=== PATIENT | male | born 1990 | race Caucasian/White ===

== ENCOUNTER → 2016-11-30 | Outpatient (CLI) | payer OTHER ==
--- NOTE | 2016-11-30 14:52 | US ---
EXAMINATION TYPE: US abdomen comp/pelvis limited DATE OF EXAM: 11/30/2016 2:45 PM COMPARISON: NONE CLINICAL HISTORY: Abd Pain R10.9. Right Flank Pain, GERD, epigastric pain x 5 days; mild pain with u rination; URI per patient; Order states attention to bladder and prostate EXAM MEASUREMENTS: Liver length: 15.2cm Gallbladder wall: 0.2cm CBD: 0.2cm Spleen: 15.2 x 14.2 x 6.3cm Right Kidney: 12.4 x 6.2 x 5.0cm Left Kidney: 12.7 x 6.6 x 6.9cm Post Void Bladder Volume: 4.0ml TECHNOLOGIST IMPRESSION: Pancreas: head seen; remainder obscured by bowel gas Liver: wnl Gallbladder: wnl CBD: wnl Spleen: enlarged Right Kidney: No hydronephrosis or masses seen Left Kidney: No hydronephrosis or masses seen Upper IVC: wnl Abd Aorta: wnl as visualized as portions are gassed out Bladder: wnl; not fully distended due to NPO status Bilateral Jets Seen only left jet was seen after 3 minute observation Normal Post Void Residual (normal less than 50ml) Yes Prostate was noted inferior and posterior to bladder but size appears within normal limits. Urinary bladder is not greatly distended midline of pelvis. There is no intraluminal mass or wall thi ckening seen. After voiding minimal residual urine is present. Majority pancreas is obscured by overl cha bowel gas. Spleen measures up to 15.8 cm on long axis without suspicious focal intrasplenic mass . IMPRESSION: Spleen is enlarged and may warrant further clinical workup otherwise no significant findi ng is seen to account for patient's symptoms.
== END | disposition home or self-care (01) ==
LOC: RADUSWWP 13:43
PROVIDERS: ATTEND Family Medicine
DX: R16.1 Splenomegaly, not elsewhere classified (principal); R10.9 Unspecified abdominal pain
CPT/HCPCS: 76700; 76857

== ENCOUNTER 2016-12-01 05:46 | Emergency (ER) | payer OTHER ==
[2016-12-01 06:01] VITALS: RESP 18; TEMP 97.6
--- NOTE | 2016-12-01 08:27 | ED ---
General Adult HPI - General Chief complaint: Abdominal Pain Stated complaint: Flank Pain/Possible Kidney stone/Febrile Time Seen by Provider: 12/01/16 07:13 Source: patient, RN notes reviewed, old records reviewed Mode of arrival: ambulatory Limitations: no limitations - History of Present Illness Initial comments: This is a 26-year-old male here with nonspecific abdominal pain nonspecific back pain runny nose cough and congestion and generally not feeling well. Patient is been evaluated as an outpatient basis for his pain with both lab work and ultrasound, patient is also unemployed belly pain but he states he Severs from reflux and thinks is just worse reflux, patient denies fever no nausea vomiting or diarrhea. Patient states he woke today with cough congestion runny nose and symptoms progressing worse upper respiratory. No shortness of breath or chest pain. No cough. No known sick contacts or travel history. Patient is taking pain control currently for his pain in his back and muscles - Related Data Home Medications Medication Instructions Recorded Confirmed HYDROcodone/APAP 5-325MG [[place] 1 tab PO Q8H PRN 12/01/16 12/01/16 5-325] Ibuprofen [Motrin] 200 - 400 mg PO Q6HR PRN 12/01/16 12/01/16 Previous Rx's Medication Instructions Recorded Azithromycin [Zithromax] 0 mg PO DIRECTED #6 tab 12/01/16 Famotidine [Pepcid] 20 mg PO BID #60 tablet 12/01/16 Sucralfate [Carafate] 1 gm PO BID #60 tablet 12/01/16 Allergies Allergy/AdvReac Type Severity Reaction Status Date / Time cephalexin monohydrate Allergy Rash/Hives Verified 12/01/16 08:34 [From [employer]] Review of Systems ROS Statement: Those systems with pertinent positive or pertinent negative responses have been documented in the HPI. ROS Other: All systems not noted in ROS Statement are negative. Past Medical History Past Medical History: No Reported History History of Any Multi-Drug Resistant Organisms: None Reported Past Surgical History: Orthopedic Surgery Additional Past Surgical History / Comment(s): LEG SURG Past Psychological History: No Psychological Hx Reported Smoking Status: Never smoker Past Alcohol Use History: Occasional Past Drug Use History: None Reported General Exam Limitations: no limitations General appearance: alert, in no apparent distress Head exam: Present: atraumatic, normocephalic, normal inspection Eye exam: Present: normal appearance, PERRL, EOMI. Absent: scleral icterus, conjunctival injection, periorbital swelling ENT exam: Present: normal exam, mucous membranes moist Neck exam: Present: normal inspection. Absent: tenderness, meningismus, lymphadenopathy Respiratory exam: Present: normal lung sounds bilaterally. Absent: respiratory distress, wheezes, rales, rhonchi, stridor Cardiovascular Exam: Present: regular rate, normal rhythm, normal heart sounds. Absent: systolic murmur, diastolic murmur, rubs, gallop, clicks GI/Abdominal exam: Present: soft, normal bowel sounds. Absent: distended, tenderness, guarding, rebound, rigid Extremities exam: Present: normal inspection, full ROM, normal capillary refill. Absent: tenderness, pedal edema, joint swelling, calf tenderness Back exam: Present: normal inspection Neurological exam: Present: alert, oriented X3, CN II-XII intact Psychiatric exam: Present: normal affect, normal mood Skin exam: Present: warm, dry, intact, normal color. Absent: rash Course Vital Signs 12/01/16 12/01/16 05:57 08:41 Temperature 97.6 F 97.6 F Pulse Rate 79 82 Respiratory 18 18 Rate Blood Pressure 121/86 132/62 O2 Sat by Pulse 98 100 Oximetry - Reevaluation(s) Reevaluation #1: 12/01/16 09:02 Patient's medical records are achieved from Dr. Abraham's office including ultrasound of abdomen which showed no specific abnormalities, physical and lab work with urine which was negative as well. Reevaluation #2: 12/01/16 09:02 Patient denying any complaints, states he took medication prior to arrival at did help with his symptoms. These is concerned about this upper respiratory infection. This time. Medical Decision Making - Medical Decision Making 26 year with documented infection as well as chronic gastritis versus possible ulcer and generalized abdominal back pain. Patient has had lab work outpatient testing which is been negative to this point. In no acute distress patient states he feels comfortable resting well will prescribe antibiotic for upper respiratory infection patient complains discharged home Disposition Clinical Impression: Gastritis, URI (upper respiratory infection) Disposition: HOME SELF-CARE Condition: Good Instructions: Gastritis (ED), Upper Respiratory Infection (ED) Prescriptions: Azithromycin [Zithromax] 0 mg PO DIRECTED #6 tab Famotidine [Pepcid] 20 mg PO BID #60 tablet Sucralfate [Carafate] 1 gm PO BID #60 tablet Referrals: Jennifer King MD [Primary Care Provider] - 1-2 days Ananda Beard MD [STAFF PHYSICIAN] - 1-2 days
[2016-12-01 08:42] VITALS: BP 132/62; PULSE 82
== END 2016-12-01 08:42 | disposition home or self-care (01) ==
LOC: EC 05:46
DX: K29.70 Gastritis, unspecified, without bleeding (principal); J06.9 Acute upper respiratory infection, unspecified; K21.9 Gastro-esophageal reflux disease without esophagitis; M54.9 Dorsalgia, unspecified; Z88.1 Allergy status to other antibiotic agents; Z79.899 Other long term (current) drug therapy
CPT/HCPCS: 99283

== ENCOUNTER 2018-02-04 17:16 | Emergency (ER) | payer OTHER ==
[2018-02-04 17:27] VITALS: TEMP 98
[2018-02-04 18:00] VITALS: BP 133/65; PULSE 73; RESP 16
--- NOTE | 2018-02-04 18:25 | ED ---
SOB HPI - General Chief Complaint: Shortness of Breath Stated Complaint: ALISHA Time Seen by Provider: 02/04/18 17:38 Source: patient Mode of arrival: ambulatory Limitations: no limitations - History of Present Illness Initial Comments: This patient is 27-year-old man presenting with a little under 24 hours of symptoms that he is describing as feeling like his heart is skipping a beat and then when it does that feeling like he needs to catch his breath. The patient does relate that he was recently changed from a controlled release formulation of his ADHD medication to twice a day medication, and that also yesterday he did drink Jagermeister and Red Bull, before the onset of the symptoms. Patient relates that things have continued intermittently today, and he did also drink a little bit of Red Bull, today as well. Patient denies oral chest pain, he has not had any anginal type symptoms, including no diaphoresis, nausea or vomiting, light headedness or syncope. He has not had any chest pain. Onset/Timin -: days(s) Consistency: intermittent Improves With: nothing Worsens With: nothing Associated Symptoms: palpitations Treatments Prior to Arrival: none - Related Data Home Medications Medication Instructions Recorded Confirmed Dextroamphetamine/Amphetamine 20 mg PO BID 02/04/18 02/04/18 [Adderall] Ranitidine HCl [Zantac] 75 mg PO DAILY 02/04/18 02/04/18 Allergies Allergy/AdvReac Type Severity Reaction Status Date / Time cephalexin monohydrate Allergy Rash/Hives Verified 02/04/18 17:27 [From [employer]] Review of Systems ROS Statement: Those systems with pertinent positive or pertinent negative responses have been documented in the HPI. ROS Other: All systems not noted in ROS Statement are negative. Constitutional: Denies: fever, chills, weakness Eyes: Denies: vision change Respiratory: Denies: cough, dyspnea Cardiovascular: Reports: as per HPI, palpitations. Denies: chest pain, dyspnea on exertion, orthopnea, syncope Gastrointestinal: Denies: abdominal pain, nausea, vomiting Musculoskeletal: Denies: back pain Neurological: Denies: headache, weakness Past Medical History Past Medical History: No Reported History History of Any Multi-Drug Resistant Organisms: None Reported Past Surgical History: Orthopedic Surgery Additional Past Surgical History / Comment(s): LEG SURG Past Psychological History: ADD/ADHD Smoking Status: Current every day smoker Past Alcohol Use History: Occasional Past Drug Use History: None Reported General Exam Limitations: no limitations General appearance: alert, in no apparent distress Head exam: Present: atraumatic, normocephalic Eye exam: Present: normal appearance. Absent: scleral icterus, conjunctival injection ENT exam: Present: normal oropharynx Respiratory exam: Present: normal lung sounds bilaterally. Absent: respiratory distress, wheezes, rales, rhonchi, stridor Cardiovascular Exam: Present: regular rate, normal rhythm, normal heart sounds. Absent: systolic murmur, diastolic murmur, rubs, gallop GI/Abdominal exam: Present: soft. Absent: distended, tenderness, guarding, rebound, mass Extremities exam: Present: normal inspection, normal capillary refill. Absent: pedal edema, calf tenderness Back exam: Present: normal inspection. Absent: CVA tenderness (R), CVA tenderness (L) Neurological exam: Present: alert Skin exam: Present: warm, dry, intact, normal color. Absent: rash Course Vital Signs 02/04/18 02/04/18 17:25 17:59 Temperature 98.0 F Pulse Rate 86 73 Respiratory 18 16 Rate Blood Pressure 128/70 133/65 O2 Sat by Pulse 100 99 Oximetry Medical Decision Making - Medical Decision Making Patient is 27-year-old man presenting with some palpitations and transient dyspnea. This does appear to be related to recent medication change and also possibly due to the use of energy drink/caffeine. We discussed appropriate further care and follow-up as well as return parameters. - EKG Data -: EKG Interpreted by Me EKG shows normal: sinus rhythm (With sinus arrhythmia), axis (Normal), intervals (Normal), QRS complexes (Normal), ST-T waves (Normal) Rate: normal Interpretation: normal EKG Disposition Clinical Impression: Palpitations Disposition: HOME SELF-CARE Condition: Good Instructions: Palpitations (ED) Is patient prescribed a controlled substance at d/c from ED?: No Referrals: Jennifer King MD [Primary Care Provider] - 1-2 days
== END 2018-02-04 18:42 | disposition home or self-care (01) ==
LOC: EC 17:16
DX: R00.2 Palpitations (principal); F90.9 Attention-deficit hyperactivity disorder, unspecified type; F17.200 Nicotine dependence, unspecified, uncomplicated; Z79.899 Other long term (current) drug therapy; Z88.1 Allergy status to other antibiotic agents
CPT/HCPCS: 93005; 99284

== ENCOUNTER → 2019-11-15 | Outpatient (CLI) | payer BC ==
--- NOTE | 2019-11-17 19:42 | MR ---
EXAMINATION TYPE: MR shoulder RT wo con DATE OF EXAM: 11/15/2019 COMPARISON: None HISTORY: Rt shoulder pain x 6 mos, no trauma TECHNIQUE: Multiplanar, multisequence imaging of the right shoulder is performed without contrast. FINDINGS: Rotator Cuff: Intact, some increased signal within the rotator cuff tendon may be indicative of tendi nosis Acromioclavicular Joint: Small amount of T2 intense signal at the acromioclavicular joint of question able clinical significance, there is some hypertrophic change with mild mass effect on the musculoten dinous junction of supraspinatus. Slightly downturned distal acromion. Glenohumeral Joint: Intact Labrum: The labrum appears grossly intact given limitation of non-arthrogram study. Biceps Tendon: The long head of biceps is in normal location within bicipital groove. Bone marrow signal: No focal abnormal marrow signal is appreciated. Other: Minimal fluid present in the subacromial subdeltoid bursa. IMPRESSION: Correlate for impingement, mild tendinosis as described..
== END | disposition home or self-care (01) ==
LOC: RADMRIMAIN 18:59
PROVIDERS: ATTEND Orthopaedic Surgery
DX: M25.511 Pain in right shoulder (principal)

== ENCOUNTER → 2019-11-30 | Outpatient (CLI) | payer BC ==
[2019-11-30 12:10] LABS: Basophils % (A) 1 %; Eosinophils # (A) 0.2 k/uL (0-0.7); Eosinophils % (A) 3 %; HCT 42.7 % (39.0-53.0); HGB 14.2 gm/dL (13.0-17.5); Lymphocytes # (A) 1.8 k/uL (1.0-4.8); Lymphocytes % (A) 30 %; MCH 29.2 pg (25.0-35.0); MCHC 33.2 g/dL (31.0-37.0); MCV 87.8 fL (80.0-100.0); Mean Platelet Volume 7.9; Monocytes # (A) 0.4 k/uL (0-1.0); Monocytes % (A) 6 %; Neutrophils # (A) 3.3 k/uL (1.3-7.7); Neutrophils % (A) 57 %; Platelet Count 307 k/uL (150-450); RBC 4.86 m/uL (4.30-5.90); RDW 12.1 % (11.5-15.5); WBC 5.9 k/uL (3.8-10.6)
[2019-11-30 12:14] LABS: Potassium 4.4 mmol/L (3.5-5.1)
== END ==
LOC: LABPAT 11:00
PROVIDERS: ATTEND Orthopaedic Surgery
DX: Z01.812 Encounter for preprocedural laboratory examination (principal); M75.41 Impingement syndrome of right shoulder
CPT/HCPCS: 36415; 80051; 85025

== ENCOUNTER 2019-12-06 19:45 | Emergency (ER) | payer BC ==
[2019-12-06 19:49] VITALS: TEMP 98.4
--- NOTE | 2019-12-06 19:56 | ED ---
General Adult HPI - General Chief complaint: ENT Stated complaint: foreign object in throat Time Seen by Provider: 12/06/19 19:51 Source: patient, family Mode of arrival: ambulatory Limitations: no limitations - History of Present Illness Initial comments: 29-year-old male patient presents to the emergency department today for evaluation for possible chicken bone in his throat. Patient states he is eating chicken, felt that the bone was starting to go down he try to catch it but was unsuccessful. Patient states he did lodge in his throat. Denies any difficulty breathing or swallowing. States that he is able to feel if he puts his finger down his trouble was unable to get it out. He denies any significant pain or discomfort. Patient denies any headache, neck pain, back pain, chest pain, shortness of breath, dizziness, weakness, abdominal pain, nausea, vomiting, or difficulties with bowel movements or urination. - Related Data Home Medications Medication Instructions Recorded Confirmed Dextroamphetamine/Amphetamine 20 mg PO BID 02/04/18 12/06/19 [Adderall] HYDROcodone/APAP 5-325MG [[place] 1 tab PO BID PRN 12/06/19 12/06/19 5-325] Ibuprofen [Advil] 800 mg PO Q6H PRN 12/06/19 12/06/19 Omeprazole 20 mg PO BID 12/06/19 12/06/19 Allergies Allergy/AdvReac Type Severity Reaction Status Date / Time cephalexin monohydrate Allergy Rash/Hives Verified 12/06/19 23:28 [From [employer]] Review of Systems ROS Statement: Those systems with pertinent positive or pertinent negative responses have been documented in the HPI. ROS Other: All systems not noted in ROS Statement are negative. Past Medical History Past Medical History: No Reported History History of Any Multi-Drug Resistant Organisms: None Reported Past Surgical History: Orthopedic Surgery Additional Past Surgical History / Comment(s): LEG SURG Past Psychological History: ADD/ADHD Smoking Status: Current every day smoker Past Alcohol Use History: Occasional Past Drug Use History: None Reported General Exam Limitations: no limitations General appearance: alert, in no apparent distress, other (This is a well- developed, well-nourished adult male patient in no acute distress. Vital signs upon presentation are temperature 98.4F, pulse 101, respirations 20, blood pressure 147/82, pulse ox 98% on room air.) ENT exam: Present: normal exam, normal oropharynx, mucous membranes moist Respiratory exam: Present: normal lung sounds bilaterally. Absent: respiratory distress, wheezes, rales, rhonchi, stridor Cardiovascular Exam: Present: regular rate, normal rhythm, normal heart sounds. Absent: systolic murmur, diastolic murmur, rubs, gallop, clicks Neurological exam: Present: alert, oriented X3, CN II-XII intact Psychiatric exam: Present: normal affect, normal mood Skin exam: Present: warm, dry, intact, normal color. Absent: rash Course Vital Signs 12/06/19 12/06/19 12/06/19 19:46 20:00 22:15 Temperature 98.4 F Pulse Rate 101 H 96 92 Respiratory 20 18 18 Rate Blood Pressure 147/82 142/57 114/67 O2 Sat by Pulse 98 94 L 97 Oximetry 12/06/19 22:30 Temperature Pulse Rate 87 Respiratory 18 Rate Blood Pressure 121/77 O2 Sat by Pulse 97 Oximetry Medical Decision Making - Medical Decision Making 29-year-old male patient presents to the emergency department today for evaluation of chicken bone stuck in his throat. Physical examination is relatively unremarkable. He is breathing without difficulty and tolerating oral secretions. Was unable to visualize the bone in the pharynx. GI was consulted and did come in to perform endoscopy. By the time they had started the procedure the chicken bone and passed into the stomach. Dr. Cortés did report there was inflammation and trauma to the esophagus with some mild bleeding. Patient was given a GI cocktail pain medication. He recovered well was alert and oriented. Tolerating oral intake. We discharged follow-up with the primary care physician for recheck in 1-2 days. Return parameters discussed in detail. He verbalizes understanding and agrees with this plan. - Radiology Data Radiology results: report reviewed, image reviewed Soft tissue neck x-ray was obtained. Report was reviewed in its entirety. Impression shows a suspicious oblique oriented density or calcification noted anterior to the C4 vertebra in which foreign body cannot be excluded. Disposition Clinical Impression: Esophageal foreign body Disposition: HOME SELF-CARE Condition: Good Instructions (If sedation given, give patient instructions): Esophageal Foreign Body (ED) Additional Instructions: Avoid spicy, acidic, and salty foods. To soft food diet for the next 48 hours then advance diet as tolerated. Follow-up through primary care physician for recheck in 1-2 days. Return to the emergency department immediately for any new, worsening, or concerning symptoms. Is patient prescribed a controlled substance at d/c from ED?: No Referrals: Jennifer King MD [Primary Care Provider] - 1-2 days Time of Disposition: 23:24
--- NOTE | 2019-12-06 20:11 | XR ---
EXAMINATION TYPE: XR soft tissue neck DATE OF EXAM: 12/06/2019 COMPARISON: Prior two-view neck x-ray February 16, 2009. HISTORY: Inhalation injury with pain and possible foreign body. TECHNIQUE: 2 view soft tissue neck. FINDINGS: Prevertebral soft tissue appears within normal limits. Hypopharyngeal airway is maintained. No subglottic steepling. Visualized lung apices clear. On lateral view there is calcification in reg ion of hyoid bone presumed related to cartilaginous calcification of the inferior thyroid cartilage. Slightly more suspicious oblique oriented density or calcification noted anterior to the C4 vertebra in which foreign body cannot be excluded. Further investigation with direct visualization or CT neck imaging should be considered. IMPRESSION: As above.
[2019-12-06] MEDS ORDERED: PROPOFOL 10 MG/ML 20 ML VIAL IV ONE (21:29)
[2019-12-06] MEDS ORDERED: SUCCINYLCHOLINE CHLORIDE 100 MG/5 ML SYR IV ONE (21:29)
[2019-12-06] MEDS ORDERED: SODIUM CHLORIDE 0.9% 1,000 ML IV ONE (21:38)
--- NOTE | 2019-12-06 21:57 | P.CONS ---
History of Present Illness - Reason for Consult Consult date: 12/06/19 Esophageal foreign body Requesting physician: Ruy Griffith - Chief Complaint Esophageal foreign body - History of Present Illness 29-year-old male with a medical history significant for ADHD and tobacco abuse who presented to the hospital due to an esophageal foreign body. The patient had been eating chicken earlier in the day and felt they are to be switched subsequently got lodged in his throat. The patient was unable to retrieve or bring the food back up and subsequently was brought to the hospital for further evaluation. He denies prior episodes of similar complaints. Currently he is able to tolerate his secretions. No abdominal pain. No nausea vomiting reported. X-ray of the soft tissue of the neck was suggestive of a calcification at C4 which could be the swallowed foreign body. Review of Systems REVIEW OF SYSTEMS: CONSTITUTIONAL: Denies any fevers, chills, weight change or fatigue. CARDIOVASCULAR: Denies any chest pain, palpitations high or low blood pressures RESPIRATORY: Denies any shortness of breath, hemoptysis or cough. GENITOURINARY: No dysuria or hematuria. MUSCULOSKELETAL: No weakness reported. SKIN: Denies any new rashes or lesions, jaundice or pallor. PSYCHIATRIC: Denies any depression or anxiety. NEUROLOGY: Denies headache, denies any new focal deficits. EARS/NOSE/THROAT: No recent hearing change, congestion, nasal discharge or sore throat. EYES: No pain in eyes, discharge or change in vision. GASTROINTESTINAL: As per HPI. Past Medical History Past Medical History: No Reported History History of Any Multi-Drug Resistant Organisms: None Reported Past Surgical History: Orthopedic Surgery Additional Past Surgical History / Comment(s): LEG SURG Past Psychological History: ADD/ADHD Smoking Status: Current every day smoker Past Alcohol Use History: Occasional Past Drug Use History: None Reported Additional History: Family history: Reviewed with the patient in noncontributory to current medical presentation. Medications and Allergies Home Medications Medication Instructions Recorded Confirmed Type Dextroamphetamine/Amphetamine 20 mg PO BID 02/04/18 02/04/18 History [Adderall] Ranitidine HCl [Zantac] 75 mg PO DAILY 02/04/18 02/04/18 History Allergies Allergy/AdvReac Type Severity Reaction Status Date / Time cephalexin monohydrate Allergy Rash/Hives Verified 12/06/19 19:48 [From [employer]] Physical Exam Vitals: Vital Signs Temp Pulse Resp BP Pulse Ox 12/06/19 19:46 98.4 F 101 H 20 147/82 98 Intake and Output 12/06/19 12/06/19 12/06/19 06:59 14:59 22:59 Other: Weight 92.986 kg On physical examination, patient appears comfortable in no apparent distress. HEAD: Normocephalic, atraumatic. EYES: No scleral icterus. No conjunctival injection. MOUTH: No lesions, tongue midline. NECK: Trachea midline, no gross abnormalities. CHEST: Clear to auscultation with no wheezing or rhonchi appreciated. HEART: Regular rate and rhythm. ABDOMEN: Soft, obese. Bowel sounds are positive. No organomegaly. No guarding or rigidity. EXTREMITIES: No pedal edema. SKIN: No rashes, no jaundice. NEUROLOGIC: Alert and oriented x3. No focal deficits. Results Comments: X-ray of the neck with suspicion for foreign body at the level of C4 Assessment and Plan (1) Esophagus, foreign body Narrative/Plan: 29-year-old male who presented to the hospital with complaints of foreign esophageal body. He had been eating chicken earlier when he swallowed a hard piece which he believes was phone. The patient had the sensation of a foreign body in his proximal esophagus and presented to the hospital for further evalu ation. No prior episodes of similar symptoms. Current Visit: Yes Status: Acute Code(s): T18.108A - UNSP FOREIGN BODY IN ESOPHAGUS CAUSING OTH INJURY, INIT SNOMED Code(s): 46265777 Plan: Supportive care Nothing by mouth Plan for urgent EGD for further evaluation Further recommendations based on findings from EGD Thank you for allowing us to participate in the care of the patient
--- NOTE | 2019-12-06 22:00 | P.PCN ---
Date of Procedure: 12/06/19 Description of Procedure: BRIEF HISTORY: 29-year-old male with a medical history significant for ADHD and tobacco abuse who presented to the hospital due to an esophageal foreign body. The patient had been eating chicken earlier in the day and felt they are to be switched subsequently got lodged in his throat. The patient was unable to retrieve or bring the food back up and subsequently was brought to the hospital for further evaluation. He denies prior episodes of similar complaints. Currently he is able to tolerate his secretions. No abdominal pain. No nausea vomiting reported. X-ray of the soft tissue of the neck was suggestive of a calcification at C4 which could be the swallowed foreign body. PROCEDURE PERFORMED: Esophagogastroduodenoscopy. PREOPERATIVE DIAGNOSIS: Esophageal foreign body, esophageal dysphagia. ESTIMATED BLOOD LOSS: Minimal. IV sedation per anesthesia. PROCEDURE: After informed consent was obtained, the patient was brought into the endoscopy unit. IV sedation was administered by Anesthesia under continuous monitoring. Initially the Olympus GIF-190 video endoscope was inserted into the mouth. Esophagus intubated without any difficulty. It was gradually advanced into the stomach and duodenum and carefully examined. The bulb and the second part of the duodenum appeared normal. The scope at this time was withdrawn to the stomach, adequately insufflated with air, and upon careful examination, mucosa of the antrum, body, cardia and the fundus appeared grossly normal with a large amount of food retained in the cardia and fundus of the stomach. The scope was then withdrawn into the esophagus. The GE junction was located at 39 cm from the incisors. The esophagus appeared grossly normal with erythema and irritation noted in the proximal and mid esophagus likely from the previously seen foreign body which had passed into the stomach. The patient tolerated the procedure well. IMPRESSION: 1. Esophagitis in the proximal and mid esophagus likely from the foreign body which has subsequently passed into the stomach. 2. Large amount of retained food in the stomach. RECOMMENDATIONS: The findings of this examination were discussed with the patient and his mother. Okay for discharge home. Patient may benefit from disks lidocaine prior to discharge and to remain on a soft diet for the next 48 hours.
[2019-12-06 22:06] VITALS: RESP 18
[2019-12-06 22:41] VITALS: BP 121/77; PULSE 87
[2019-12-06] MEDS ORDERED: MAG HYDROX/AL HYDROX/SIMETH 30 ML, HYOSCYAMINE ELIXIR 10 ML, LIDOCAINE VISCOUS 2% 10 ML PO STA ×3 (22:45)
[2019-12-06] MEDS ORDERED: KETOROLAC 30 MG/ML 1 ML VIAL IVP STA (22:45)
== END 2019-12-06 23:45 | disposition home or self-care (01) ==
LOC: EC 19:45
DX: T18.108A Unspecified foreign body in esophagus causing other injury, initial encounter (principal); K20.9 Esophagitis, unspecified; R13.14 Dysphagia, pharyngoesophageal phase; F90.9 Attention-deficit hyperactivity disorder, unspecified type; F17.200 Nicotine dependence, unspecified, uncomplicated; Z79.899 Other long term (current) drug therapy; Z88.1 Allergy status to other antibiotic agents; X58.XXXA Exposure to other specified factors, initial encounter
CPT/HCPCS: 70360; 43247; 99284; 96374; J1885; J0330; J2704

== ENCOUNTER 2019-12-19 05:56 | Day surgery (SDC) | payer BC ==
[2019-12-17 14:55] VITALS: BMI 29.2
--- NOTE | 2019-12-18 13:22 | HP ---
HISTORY AND PHYSICAL Surgery is scheduled for 12/19/2019. Jacobo Justin is a 29-year-old patient who is seen for progressive right shoulder pain. We discussed options for treatment. He elected to proceed with arthroscopy. Consent regarding the procedure was obtained. PAST MEDICAL HISTORY: Attention deficit disorder. PAST SURGICAL HISTORY: Right hand surgery, appendectomy, right ankle surgery. DAILY MEDICATIONS: 1. Adderall. 2. Prilosec. 3. Ibuprofen. ALLERGIES: KEFLEX, which causes a rash. SOCIAL HISTORY: He smokes one pack of cigarettes daily. PHYSICAL EXAMINATION: Physical evaluation of the right shoulder: Flexion is 140, abduction is 140, external rotation is 40 with some pain and weakness. There is tenderness along the anterolateral acromion and rotator cuff insertion site. Impingement sign is positive at 100. Distal neurovascular exam is intact. Radiographs of the right shoulder revealed a type 2 anterior acromion, evidence for acromioclavicular joint osteoarthritis and cystic changes of the greater tuberosity. A right shoulder MRI revealed acromioclavicular joint osteoarthritis and impingement. IMPRESSION: 1. Right shoulder impingement with rotator cuff tendinitis. 2. Right shoulder acromioclavicular joint osteoarthritis. 3. Attention deficit disorder. 4. Tobacco use. PLAN: Right shoulder arthroscopy, subacromial decompression, possible arthroscopic rotator cuff repair, probable Jurgen procedure and debridement. MMODL / IJN: [id number] /
[2019-12-19] MEDS ORDERED: fentaNYL (PF) 50 MCG/ML 2 ML AMP IVP PRN (06:12)
[2019-12-19] MEDS ORDERED: LIDOCAINE 1% (10MG/ML) FOR IV START INTRADERMA PRN (06:12)
[2019-12-19] MEDS ORDERED: ONDANSETRON 4 MG/2 ML VIAL IVP ONE (06:12)
[2019-12-19] MEDS ORDERED: DEXAMETHASONE SOD PHOSPHATE 10 MG/ML 1 ML VIAL IV ONE (06:12)
[2019-12-19] MEDS ORDERED: MIDAZOLAM 2 MG/2 ML VIAL IV PRN (06:12)
[2019-12-19] MEDS ORDERED: LACTATED RINGERS 1,000 ML IV SCH (06:12)
[2019-12-19] MEDS ORDERED: HYDROmorphone 0.5 MG/0.5 ML SYRINGE IVP PRN (06:12)
[2019-12-19] MEDS ORDERED: SUCCINYLCHOLINE CHLORIDE 100 MG/5 ML SYR IV ONE (07:42)
[2019-12-19] MEDS ORDERED: MIDAZOLAM 2 MG/2 ML VIAL ONE (07:42)
[2019-12-19] MEDS ORDERED: PROPOFOL 10 MG/ML 20 ML VIAL IV ONE (07:42)
[2019-12-19] MEDS ORDERED: fentaNYL (PF) 50 MCG/ML 2 ML AMP ONE (07:42)
[2019-12-19] MEDS ORDERED: ceFAZolin 1,000 MG VIAL ONE (07:42)
[2019-12-19] MEDS ORDERED: LIDOCAINE 1% INJ 10MG/ML (20 ML MDV) ONE (07:42)
[2019-12-19] MEDS ORDERED: ROPIVACAINE 5 MG/ML 30 ML VIAL ONE (07:42)
[2019-12-19] MEDS ORDERED: SODIUM CHLORIDE 0.9% 100 ML with ceFAZolin 2,000 MG IV ONE ×2 (07:50)
--- NOTE | 2019-12-19 08:56 | P.ANPRN ---
Procedure Note - Anesthesia - Nerve Block Performed Right Interscalene Single Time Out Performed: Yes Date of Procedure: 12/19/19 Procedure Start Time: 06:50 Procedure Stop Time: 07:01 Location of Patient: PreOp Indication: Acute Post-Operative Pain, Requested by Surgeon Specifically requested for management of pain by DrShavonne: Josh Thomas Sedation Type: Sedate with meaningful contact maintained Preparation: Sterile Prep Position: Supine Catheter: None Needle Types: Pajunk Needle Gauge: 21 Ultrasound used to visualize needle placement: Yes Ultrasound used to observe medication spread: Yes Injectate: 0.5% Ropivacaine (see comment for volume) (20 cc) Blood Aspirated: No Pain Paresthesia on Injection Noted: No Resistance on Injection: Normal Image Stored and Saved: Yes Events: Uneventful and Well Tolerated
[2019-12-19] MEDS ORDERED: LACTATED RINGERS 1,000 ML IV ONE ×2 (09:13)
[2019-12-19 09:17] VITALS: TEMP 97.1
--- NOTE | 2019-12-19 09:19 | P.OP ---
Date of Procedure: 12/19/19 Preoperative Diagnosis: Right shoulder impingement Postoperative Diagnosis: 1. Right shoulder rotator cuff tear 2. Right shoulder impingement Procedure(s) Performed: 1. Right shoulder arthroscopic rotator cuff repair 2. Right shoulder arthroscopic subacromial decompression Implants: 14.75 Arthrex swivel lock anchor Anesthesia: GETA, regional (Interscalene block) Surgeon: Josh Thomas Industrial Roofer #1: Keegan Sigala Estimated Blood Loss (ml): 7 Pathology: none sent Condition: stable Disposition: PACU Indications for Procedure: 29-year-old patient seen with progressive/persistent right shoulder pain. After treatment options were discussed, he elected to proceed with arthroscopy. Operative Findings: See description of procedure Description of Procedure: Patient underwent an interscalene block by department of anesthesia. The patient was then taken to the operative suite. The patient underwent a general anesthetic by the department of anesthesia. The patient was placed into a lateral position and secured. There was appropriate padding of the bony prominence. Right shoulder was then prepped and draped in normal sterile orthopedic fashion. We placed the extremity in 10 pounds of longitudinal traction. A posterior incision was now made for a posterior working portal site. The trocar and cannula were inserted into the glenohumeral joint. Arthroscopy was initiated. Spinal needle was now inserted anteriorly, to ascertain the anterior working portal site. An incision was now made in that area, a trocar was inserted followed by a probe. The labrum was probed and found to be stable. The glenohumeral joint was unremarkable. The biceps appeared stable as did the anchor. I couldn't visualize the rotator cuff tear posterior to the bicipital hiatus. At this point instruments removed from glenohumeral joint. Utilizing the posterior working portal site, the trocar and cannula were inserted into the subacromial space. Arthroscopy initiated. I made an incision 2 fingerbreadths lateral to the acromion. I introduced my trocar followed by my ArthroCare ablator. I now began ablating thick subacromial bursal tissue, which exposed the undersurface of the anterior acromion. There was diminished subacromial space. There was a very prominent anterior acromion. A motorized bur was introduced and a subacromial decompression was performed. I noted good decompression of the subacromial space. I now visualized the acromioclavicular joint. There was very mild arthritis. There was no osteophytes present. I now turned my attention to the rotator cuff tendon. I was able to visualize the tear along the anterior aspect distal supraspinatus which was basically a several millimeter full-thickness rent. I now debrided the margins getting down to stable tendon tissue. The defect now measured 11.5 cm and was freely mobile over the footprint. I abraded the footprint with a motorized bur. I now with the assistance of Sven BERNARDO passed 2 everted mattress sutures through good bites of rotator cuff tendon. I now punched a hole in the area the footprint for insertion of an anchor. All 4 limbs of suture were now passed through the eyelet of a 4.75 Arthrex swivel lock anchor. The eyelet was now introduced into the pre-punch hole. Sven BERNARDO tensioned all the sutures and deployed the anchor with good fixation noted. All residual suture limbs were clipped. We had good compression of the tendon along the entire footprint. I injected 1 mL Renyte intra-articular. Instruments were now removed from the portal sites. All portal sites were approximated with nylon suture. Sterile dressings were applied followed by a shoulder sling. Keegan BERNARDO assisted in this complex case. The patient was awakened, transferred to a bed, and taken to recovery in stable condition.
[2019-12-19 10:34] VITALS: PULSE 80
[2019-12-19 10:48] VITALS: BP 124/77; RESP 14
== END 2019-12-19 11:07 | disposition home or self-care (01) ==
LOC: OR 05:56
PROVIDERS: ATTEND Orthopaedic Surgery
DX: M75.101 Unspecified rotator cuff tear or rupture of right shoulder, not specified as traumatic (principal); M75.41 Impingement syndrome of right shoulder; M19.011 Primary osteoarthritis, right shoulder; F98.8 Other specified behavioral and emotional disorders with onset usually occurring in childhood and adolescence; Z79.1 Long term (current) use of non-steroidal anti-inflammatories (NSAID); Z79.899 Other long term (current) drug therapy; Z98.890 Other specified postprocedural states; Z88.1 Allergy status to other antibiotic agents; F17.210 Nicotine dependence, cigarettes, uncomplicated; K21.9 Gastro-esophageal reflux disease without esophagitis; Z79.891 Long term (current) use of opiate analgesic
CPT/HCPCS: 29826; 29827; 64415; 76942; C1713; Q4212; J2250; J1100; J2405; J0690; J2001; J3010; J2795; J0330; J2704

== ENCOUNTER → 2020-05-20 | Outpatient (CLI) | payer BC ==
--- NOTE | 2020-05-21 11:38 | ECHOF ---
Referral Reason:R06.02 Short of breath R00.2 Palpitations MEASUREMENTS -------- HEIGHT: 182.9 cm WEIGHT: 93.0 kg BP: RVIDd: 3.1 cm (< 3.3) IVSd: 0.8 cm (0.6 - 1.1) LVIDd: 5.0 cm (3.9 - 5.3) LVPWd: 1.3 cm (0.6 - 1.1) IVSs: 1.0 cm LVIDs: 3.4 cm LVPWs: 1.7 cm LAESV Index (A-L): 21.73 ml/m Ao Diam: 3.1 cm (2.0 - 3.7) AV Cusp: 2.0 cm (1.5 - 2.6) LA Diam: 3.4 cm (2.7 - 3.8) MV EXCURSION: 17.918 mm (> 18.000) MV EF SLOPE: 89 mm/s (70 - 150) EPSS: 0.3 cm MV E Javier: 0.75 m/s MV DecT: 226 ms MV A Javier: 0.60 m/s MV E/A Ratio: 1.27 RAP: 5.00 mmHg RVSP: 21.19 mmHg FINDINGS -------- Sinus rhythm. This was a technically good study. LV size, wall thickness and systolic function are normal, with an EF greater than 55%. The left denise tricular size is normal. The right ventricle is normal in size. The left atrial size is normal. The right atrial size is normal. The aortic valve is trileaflet, and appears structurally normal. No aortic stenosis or regurgitation. Mild mitral regurgitation is present. Mild tricuspid regurgitation present. Right ventricular systolic pressure is normal at < 35 mmHg. There is no pulmonic regurgitation present. The aortic root size is normal. There is no pericardial effusion. CONCLUSIONS -------- 1. LV size, wall thickness and systolic function are normal, with an EF greater than 55%. 2. The left ventricular size is normal. 3. The right ventricle is normal in size. 4. The left atrial size is normal. 5. The right atrial size is normal. 6. Mild mitral regurgitation is present. 7. Mild tricuspid regurgitation present. DIRECTOR OF BUSINESS SYSTEMS: Catherine Curtis RDCS
--- NOTE | 2020-06-01 19:42 | HM ---
HOLTER MONITOR REPORT This patient was monitored for 48 hours. The baseline rhythm is a sinus mechanism with normal conduction, the average rate 97 beats per minute, minimum 54, maximum 176 beats per minute. Ventricular ectopic activity was present in the form of rare single PACs. Supraventricular ectopic activity was present in the form of rare single PACs. Symptoms of flutter did not correlate with any clear dysrhythmia. CONCLUSION: 1. Sinus mechanism baseline rhythm. 2. Rare ventricular ectopic activity. 3. Rare supraventricular ectopic activity. 4. Symptoms did not correlate with any clear dysrhythmia. MMODL / IJN: [id number] /
== END | disposition home or self-care (01) ==
LOC: RADECHMAIN 10:48
PROVIDERS: ATTEND Family Medicine
DX: I08.1 Rheumatic disorders of both mitral and tricuspid valves (principal)
CPT/HCPCS: 93225; 93226; 93306

== ENCOUNTER 2022-01-17 19:45 | Emergency (ER) | payer BC ==
[2022-01-17 20:15] VITALS: RESP 18; TEMP 98.2
--- NOTE | 2022-01-17 22:41 | ED ---
Chest Pain HPI - General Chief Complaint: Chest Pain Stated Complaint: Chest Pain Time Seen by Provider: 01/17/22 22:22 Source: patient Mode of arrival: ambulatory Limitations: no limitations - History of Present Illness MD Complaint: chest pain Onset/Timin -: hour(s) Onset: during rest Pain Location: left chest Pain Radiation: LUE Severity: moderate Quality: dull Consistency: constant Improves With: nothing Worsens With: nothing Treatments Prior to Arrival: none - Related Data Home Medications Medication Instructions Recorded Confirmed Multivitamins, Thera [Multivitamin 1 tab PO BID 12/17/19 01/17/22 (formulary)] Dextroamphetamine/Amphetamine 30 mg PO DAILY 01/17/22 01/17/22 [Adderall Xr] Turmeric Root Extract [Turmeric] 500 mg PO DAILY 01/17/22 01/17/22 Allergies Allergy/AdvReac Type Severity Reaction Status Date / Time cephalexin monohydrate Allergy Rash/Hives Verified 01/17/22 23:03 [From L'Idealist] Review of Systems ROS Statement: Those systems with pertinent positive or pertinent negative responses have been documented in the HPI. ROS Other: All systems not noted in ROS Statement are negative. Constitutional: Denies: fever, chills, weakness Respiratory: Denies: cough, dyspnea Cardiovascular: Reports: chest pain. Denies: palpitations, orthopnea, edema, syncope Gastrointestinal: Denies: abdominal pain, nausea, vomiting Genitourinary: Denies: dysuria Musculoskeletal: Denies: back pain Skin: Denies: rash Neurological: Denies: headache, weakness, numbness Past Medical History Past Medical History: No Reported History History of Any Multi-Drug Resistant Organisms: None Reported Past Surgical History: Orthopedic Surgery Additional Past Surgical History / Comment(s): LEG SURG Past Anesthesia/Blood Transfusion Reactions: No Reported Reaction Past Psychological History: ADD/ADHD Past Alcohol Use History: Occasional - Past Family History Mother Family Medical History: No Reported History General Exam Limitations: no limitations General appearance: alert, in no apparent distress Head exam: Present: atraumatic, normocephalic Eye exam: Present: normal appearance. Absent: scleral icterus, conjunctival injection Neck exam: Present: normal inspection, full ROM Respiratory exam: Present: normal lung sounds bilaterally. Absent: respiratory distress, wheezes, rales, rhonchi, stridor, chest wall tenderness Cardiovascular Exam: Present: regular rate, normal rhythm, normal heart sounds. Absent: systolic murmur, diastolic murmur, rubs, gallop GI/Abdominal exam: Present: soft. Absent: distended, tenderness, guarding, rebound, rigid, mass Extremities exam: Present: normal inspection, normal capillary refill. Absent: pedal edema, calf tenderness Back exam: Present: normal inspection. Absent: CVA tenderness (R), CVA tenderness (L) Neurological exam: Present: alert Skin exam: Present: warm, dry, intact, normal color. Absent: rash Course Vital Signs 01/17/22 20:12 Temperature 98.2 F Pulse Rate 69 Respiratory 18 Rate Blood Pressure 127/77 O2 Sat by Pulse 99 Oximetry Disposition Clinical Impression: Chest pain Disposition: HOME SELF-CARE Condition: Good Instructions (If sedation given, give patient instructions): Chest Pain (ED) Is patient prescribed a controlled substance at d/c from ED?: No Referrals: Remington Randall MD [Primary Care Provider] - 1-2 days
--- NOTE | 2022-01-17 23:07 | XR ---
EXAMINATION TYPE: XR chest 1V portable DATE OF EXAM: 01/17/2022 COMPARISON: 09/29/2011 HISTORY: Chest pain TECHNIQUE: FINDINGS: Heart and mediastinum are normal. Lungs are clear. Diaphragm is normal. Bony thorax appears normal. IMPRESSION: Normal chest. No change.
[2022-01-17 23:14] LABS: Basophils % (A) 0 %; Eosinophils # (A) 0.1 k/uL (0-0.7); Eosinophils % (A) 2 %; HCT 40.3 % (39.0-53.0); HGB 13.5 gm/dL (13.0-17.5); Lymphocytes # (A) 2.2 k/uL (1.0-4.8); Lymphocytes % (A) 36 %; MCH 29.7 pg (25.0-35.0); MCHC 33.6 g/dL (31.0-37.0); MCV 88.6 fL (80.0-100.0); Mean Platelet Volume 8.4; Monocytes # (A) 0.2 k/uL (0-1.0); Monocytes % (A) 4 %; Neutrophils # (A) 3.4 k/uL (1.3-7.7); Neutrophils % (A) 56 %; Platelet Count 264 k/uL (150-450); RBC 4.56 m/uL (4.30-5.90); RDW 12.8 % (11.5-15.5); WBC 6.1 k/uL (3.8-10.6)
[2022-01-17 23:23] LABS: Partial Thromboplastin Time 28.8 sec (22.0-30.0); Prothrombin Time 11.2 sec (9.0-12.0)
[2022-01-17 23:40] LABS: ALT 24 U/L (4-49); AST 23 U/L (17-59); African American GFR (CKD) >90 (>60 ml/min/1.73 sqM); Albumin 4.8 g/dL (3.5-5.0); Alkaline Phosphatase 53 U/L (38-126); Anion Gap 8 mmol/L; Blood Urea Nitrogen 15 mg/dL (9-20); Calcium 9.5 mg/dL (8.4-10.2); Carbon Dioxide 26 mmol/L (22-30); Chloride 104 mmol/L (98-107); Glucose 92 mg/dL (74-99); Magnesium 2.2 mg/dL (1.6-2.3); Non-African American GFR(CKD) >90 (>60 ml/min/1.73 sqM); Sodium 138 mmol/L (137-145); Total Bilirubin 0.4 mg/dL (0.2-1.3); Total Protein 7.3 g/dL (6.3-8.2)
[2022-01-18 00:26] VITALS: BP 135/88; PULSE 62
== END 2022-01-18 00:26 | disposition home or self-care (01) ==
LOC: EC 19:45
DX: R07.89 Other chest pain (principal); F90.9 Attention-deficit hyperactivity disorder, unspecified type
CPT/HCPCS: 36415; 71045; 80053; 83735; 84484; 85025; 85610; 85730; 93005; 99285